=== PATIENT | female | born 1960 | race Caucasian/White ===

== ENCOUNTER 2017-08-19 19:13 | Emergency (ER) | payer OTHER, MEDICAID ==
[2017-08-19 20:54] LABS: ADD MAN DIFF? NO
[2017-08-19 21:01] LABS: BASOPHIL # 0.1 10^3/ul (0.0-0.1); BASOPHILS % 0.8 % (0.0-2.0); EOSINOPHILS # 0.5 10^3/ul (0.0-0.5); EOSINOPHILS % 4.2 % (0.0-7.0); HEMATOCRIT 31.6 % (37.0-47.0); HEMOGLOBIN 10.9 g/dl (12.0-16.0); LYMPHOCYTES # 3.4 10^3/ul (0.8-2.9); LYMPHOCYTES % 31.7 % (15.0-51.0); MEAN CORPUSCULAR HEMOGLOBIN 29.5 pg (29.0-33.0); MEAN CORPUSCULAR HGB CONC 34.5 g/dl (32.0-37.0); MEAN CORPUSCULAR VOLUME 85.4 fl (82.0-101.0); MONOCYTE # 0.7 10^3/ul (0.3-0.9); MONOCYTES % 6.8 % (0.0-11.0); PLATELET COUNT 304 10^3/UL (140-415); RED CELL DISTRIBUTION WIDTH 13.3 % (11.5-14.5)
[2017-08-19 21:01] LABS: WHITE BLOOD COUNT 10.6 10^3/ul (4.8-10.8)
[2017-08-19] MEDS: SOD CHLORIDE 0.9% 1,000 ML IV (21:14)
[2017-08-19 21:24] LABS: ALANINE AMINOTRANSFERASE 22 IU/L (13-69); ALBUMIN 3.4 g/dl (3.3-4.9); ALBUMIN/GLOBULIN RATIO 0.91; ALKALINE PHOSPHATASE 102 IU/L (42-121); ANION GAP 16 (8-16); ASPARTATE AMINO TRANSFERASE 18 IU/L (15-46); BLOOD UREA NITROGEN 27 mg/dl (7-20); CALCIUM 8.5 mg/dl (8.4-10.2); CARBON DIOXIDE 21 mmol/L (21-31); CHLORIDE 108 mmol/L (97-110); CREATININE 1.87 mg/dl (0.44-1.00); GLUCOSE 215 mg/dl (70-220); LIPASE 125 U/L (23-300); POTASSIUM 3.8 mmol/L (3.5-5.1); SODIUM 141 mmol/L (135-144); TOTAL PROTEIN 7.1 g/dl (6.1-8.1)
[2017-08-19 21:39] LABS: ADD UMIC YES; UR ASCORBIC ACID NEGATIVE (NEGATIVE); UR BACTERIA FEW /HPF (NONE SEEN); UR BILIRUBIN (Dip) NEGATIVE (NEGATIVE); UR BLOOD (Dip) NEGATIVE (NEGATIVE); UR CLARITY SLIGHTLY CLOUDY (CLEAR); UR COLOR YELLOW (YELLOW); UR GLUCOSE (Dip) 1+ mg/dL (NEGATIVE); UR KETONES (Dip) NEGATIVE (NEGATIVE); UR LEUKOCYTE ESTERASE (Dip) NEGATIVE Leu/ul (NEGATIVE); UR NITRITE (Dip) NEGATIVE (NEGATIVE); UR NONSQUAMOUS EPITHELIAL CELL 1 /HPF (NONE SEEN); UR RBC 2 /HPF (0-5); UR SPECIFIC GRAVITY (Dip) 1.016 (1.003-1.030); UR SQUAMOUS EPITHELIAL CELL FEW /HPF (FEW); UR TOTAL PROTEIN (Dip) 3+ mg/dl (NEGATIVE); UR UROBILINOGEN (Dip) NEGATIVE (NEGATIVE); UR WBC 4 /HPF (0-5)
== END 2017-08-19 22:31 | disposition home or self-care (01) ==
LOC: E/R 19:13
DX: E11.42 Type 2 diabetes mellitus with diabetic polyneuropathy (principal); R20.2 Paresthesia of skin; E86.0 Dehydration; I10 Essential (primary) hypertension; I25.10 Atherosclerotic heart disease of native coronary artery without angina pectoris; E66.9 Obesity, unspecified; Z87.891 Personal history of nicotine dependence; Z98.61 Coronary angioplasty status; Z79.82 Long term (current) use of aspirin; Z79.84 Long term (current) use of oral hypoglycemic drugs
CPT/HCPCS: 36415; 80053; 81001; 83690; 85025; 99284-25

== ENCOUNTER 2017-08-22 13:49 | Emergency (ER) | payer OTHER, MEDICAID ==
[2017-08-22 14:19] LABS: ADD MAN DIFF? NO
[2017-08-22 14:21] LABS: WHITE BLOOD COUNT 9.5 10^3/ul (4.8-10.8)
[2017-08-22 14:21] LABS: BASOPHIL # 0.1 10^3/ul (0.0-0.1); BASOPHILS % 0.5 % (0.0-2.0); EOSINOPHILS # 0.2 10^3/ul (0.0-0.5); EOSINOPHILS % 2.2 % (0.0-7.0); HEMATOCRIT 30.8 % (37.0-47.0); HEMOGLOBIN 10.4 g/dl (12.0-16.0); LYMPHOCYTES # 2.2 10^3/ul (0.8-2.9); LYMPHOCYTES % 23.3 % (15.0-51.0); MEAN CORPUSCULAR HEMOGLOBIN 28.7 pg (29.0-33.0); MEAN CORPUSCULAR HGB CONC 33.8 g/dl (32.0-37.0); MEAN CORPUSCULAR VOLUME 85.1 fl (82.0-101.0); MEAN PLATELET VOLUME 9.4 fl (7.4-10.4); MONOCYTE # 0.8 10^3/ul (0.3-0.9); NEUTROPHIL # 6.2 10^3/ul (1.6-7.5); NEUTROPHILS % 65.6 % (39.0-77.0); PLATELET COUNT 303 10^3/UL (140-415); RED BLOOD COUNT 3.62 10^6/ul (4.20-5.40); RED CELL DISTRIBUTION WIDTH 13.4 % (11.5-14.5)
[2017-08-22 14:39] LABS: ALANINE AMINOTRANSFERASE 23 IU/L (13-69); ALBUMIN 3.2 g/dl (3.3-4.9); ALBUMIN/GLOBULIN RATIO 0.91; ALKALINE PHOSPHATASE 86 IU/L (42-121); ANION GAP 15 (8-16); ASPARTATE AMINO TRANSFERASE 16 IU/L (15-46); BILIRUBIN,INDIRECT 0.2 mg/dl (0-1.1); BILIRUBIN,TOTAL 0.2 mg/dl (0.2-1.3); BLOOD UREA NITROGEN 16 mg/dl (7-20); CALCIUM 8.7 mg/dl (8.4-10.2); CARBON DIOXIDE 23 mmol/L (21-31); CHLORIDE 110 mmol/L (97-110); CREATININE 1.26 mg/dl (0.44-1.00); GLUCOSE 285 mg/dl (70-220); LIPASE 53 U/L (23-300); POTASSIUM 4.5 mmol/L (3.5-5.1); SODIUM 143 mmol/L (135-144); TOTAL PROTEIN 6.7 g/dl (6.1-8.1)
[2017-08-22 14:40] LABS: INR 0.99; PROTIME 13.2 Sec (11.9-14.9)
[2017-08-22 14:41] LABS: PARTIAL THROMBOPLASTIN TIME 34.3 Sec (25.0-35.0)
[2017-08-22] MEDS: MECLIZINE 12.5 MG TAB PO (15:23)
== END 2017-08-22 15:46 | disposition home or self-care (01) ==
LOC: E/R 15:46
DX: R42 Dizziness and giddiness (principal); D64.9 Anemia, unspecified; I10 Essential (primary) hypertension; E11.9 Type 2 diabetes mellitus without complications; I25.10 Atherosclerotic heart disease of native coronary artery without angina pectoris; Z79.4 Long term (current) use of insulin; Z79.82 Long term (current) use of aspirin; Z98.61 Coronary angioplasty status; Z87.891 Personal history of nicotine dependence
CPT/HCPCS: 36415; 70450; 80053; 83690; 85025; 85610; 85730; 93005; 99284-25

== ENCOUNTER 2017-11-03 21:23 | Inpatient (IN) | payer OTHER, MEDICAID ==
[2017-11-03 22:26] LABS: ADD MAN DIFF? NO
[2017-11-03 22:29] LABS: BASOPHIL # 0.1 10^3/ul (0.0-0.1); BASOPHILS % 0.6 % (0.0-2.0); EOSINOPHILS # 0.1 10^3/ul (0.0-0.5); EOSINOPHILS % 0.6 % (0.0-7.0); HEMATOCRIT 29.9 % (37.0-47.0); HEMOGLOBIN 9.1 g/dl (12.0-16.0); LYMPHOCYTES # 1.4 10^3/ul (0.8-2.9); LYMPHOCYTES % 15.6 % (15.0-51.0); MEAN CORPUSCULAR HGB CONC 30.4 g/dl (32.0-37.0); MEAN CORPUSCULAR VOLUME 88.7 fl (82.0-101.0); MEAN PLATELET VOLUME 9.5 fl (7.4-10.4); MONOCYTE # 0.7 10^3/ul (0.3-0.9); MONOCYTES % 7.6 % (0.0-11.0); NEUTROPHIL # 6.8 10^3/ul (1.6-7.5); NEUTROPHILS % 74.8 % (39.0-77.0); PLATELET COUNT 204 10^3/UL (140-415); RED BLOOD COUNT 3.37 10^6/ul (4.20-5.40); RED CELL DISTRIBUTION WIDTH 19.4 % (11.5-14.5)
[2017-11-03 22:49] LABS: ANION GAP 8 (8-16); BLOOD UREA NITROGEN 48 mg/dl (7-20); CALCIUM 8.2 mg/dl (8.4-10.2); CARBON DIOXIDE 23 mmol/L (21-31); CHLORIDE 114 mmol/L (97-110); CREATININE 2.37 mg/dl (0.44-1.00); GLUCOSE 105 mg/dl (70-220); POTASSIUM 5.2 mmol/L (3.5-5.1); SODIUM 140 mmol/L (135-144)
[2017-11-04] MEDS ORDERED: ONDANSETRON 4 MG INJ IV ×2 (00:30)
[2017-11-04] MEDS ORDERED: ACETAMINOPHEN 325 MG TAB PO (00:30)
[2017-11-04] MEDS: DEXTROSE 5%-0.45% NACL 1,000 ML IV (00:40)
[2017-11-04] MEDS: INSULIN ASPART [NOVOLOG] 3 ML PEN SC ×6 (01:00→21:00)
[2017-11-04] MEDS: ACCU-CHEK XX (02:30)
[2017-11-04] MEDS ORDERED: PENDING SANTYL ORDER FOR WOUND CARE XX (05:00)
[2017-11-04 06:34] LABS: ADD MAN DIFF? NO
[2017-11-04 06:50] LABS: BASOPHILS % 0.3 % (0.0-2.0); EOSINOPHILS % 0.1 % (0.0-7.0); HEMATOCRIT 29.4 % (37.0-47.0); HEMOGLOBIN 8.9 g/dl (12.0-16.0); LYMPHOCYTES # 2.5 10^3/ul (0.8-2.9); LYMPHOCYTES % 26.9 % (15.0-51.0); MEAN CORPUSCULAR HEMOGLOBIN 26.8 pg (29.0-33.0); MEAN CORPUSCULAR HGB CONC 30.3 g/dl (32.0-37.0); MEAN CORPUSCULAR VOLUME 88.6 fl (82.0-101.0); MEAN PLATELET VOLUME 9.5 fl (7.4-10.4); MONOCYTE # 0.9 10^3/ul (0.3-0.9); MONOCYTES % 9.9 % (0.0-11.0); NEUTROPHIL # 5.8 10^3/ul (1.6-7.5); NEUTROPHILS % 62.2 % (39.0-77.0); PLATELET COUNT 216 10^3/UL (140-415); RED BLOOD COUNT 3.32 10^6/ul (4.20-5.40); RED CELL DISTRIBUTION WIDTH 19.2 % (11.5-14.5)
[2017-11-04 06:50] LABS: WHITE BLOOD COUNT 9.3 10^3/ul (4.8-10.8)
[2017-11-04 07:00] LABS: HEMOGLOBIN A1C 5.8 % (0-5.9)
[2017-11-04 07:04] LABS: CHOLESTEROL 91 mg/dl (100-200)
[2017-11-04 07:04] LABS: CHOL/HDL RATIO 2.3 RATIO; HDL CHOLESTEROL 39 mg/dl (37-92); LDL CHOLESTEROL,CALCULATED 39 mg/dl; TRIGLYCERIDES 63 mg/dl (0-149)
[2017-11-04 07:08] LABS: ALANINE AMINOTRANSFERASE 36 IU/L (13-69); ALBUMIN 2.6 g/dl (3.3-4.9); ALBUMIN/GLOBULIN RATIO 0.81; ALKALINE PHOSPHATASE 78 IU/L (42-121); ANION GAP 8 (8-16); ASPARTATE AMINO TRANSFERASE 50 IU/L (15-46); BLOOD UREA NITROGEN 50 mg/dl (7-20); CALCIUM 8.2 mg/dl (8.4-10.2); CARBON DIOXIDE 21 mmol/L (21-31); CHLORIDE 119 mmol/L (97-110); CREATININE 2.16 mg/dl (0.44-1.00); GLUCOSE 111 mg/dl (70-220); POTASSIUM 4.8 mmol/L (3.5-5.1); SODIUM 143 mmol/L (135-144); TOTAL PROTEIN 5.8 g/dl (6.1-8.1)
[2017-11-04] MEDS ORDERED: GLUCOSE GEL 15 GRAM TUBE PO ×2 (07:30)
[2017-11-04] MEDS ORDERED: GLUCOSE GEL 15 GRAM TUBE BUCCAL (07:30)
[2017-11-04] MEDS ORDERED: GLUCAGON 1 MG INJ IM (07:30)
[2017-11-04] MEDS ORDERED: DEXTROSE 50% 50 ML SYRINGE IV (07:30)
[2017-11-04] MEDS: LEVOTHYROXINE 50 MCG TAB PO (07:46)
[2017-11-04] MEDS: GABAPENTIN 300 MG CAP PO (08:05)
[2017-11-04] MEDS: DOCUSATE SODIUM 100 MG CAP PO ×2 (08:05→20:50)
[2017-11-04] MEDS: DIVALPROEX (ER) 500 MG TAB PO (08:05)
[2017-11-04] MEDS: ASPIRIN (EC) 81 MG TAB PO (08:07)
[2017-11-04] MEDS: CLOPIDOGREL 75 MG TAB PO (08:07)
[2017-11-04] MEDS: FERROUS SULFATE (EC) 325 MG TAB PO ×2 (08:07→20:51)
[2017-11-04] MEDS: DIPHENOXYLATE/ATROPINE TAB PO ×3 (10:09→20:58)
[2017-11-04 10:12] LABS: ADD UMIC YES; UR ASCORBIC ACID NEGATIVE (NEGATIVE); UR BILIRUBIN (Dip) NEGATIVE (NEGATIVE); UR BLOOD (Dip) NEGATIVE (NEGATIVE); UR CLARITY CLEAR (CLEAR); UR COLOR YELLOW (YELLOW); UR GLUCOSE (Dip) NEGATIVE (NEGATIVE); UR KETONES (Dip) NEGATIVE (NEGATIVE); UR LEUKOCYTE ESTERASE (Dip) NEGATIVE Leu/ul (NEGATIVE); UR NITRITE (Dip) NEGATIVE (NEGATIVE); UR RBC 0 /HPF (0-5); UR SPECIFIC GRAVITY (Dip) 1.017 (1.003-1.030); UR TOTAL PROTEIN (Dip) 2+ mg/dl (NEGATIVE); UR UROBILINOGEN (Dip) NEGATIVE (NEGATIVE); UR WBC 2 /HPF (0-5)
[2017-11-04] MEDS: SOD CHLORIDE 0.9% 1,000 ML IV ×2 (11:05→20:50)
[2017-11-04] MEDS: HEPARIN 5,000 UNIT/0.5 ML VIAL SC ×2 (14:40→21:21)
[2017-11-04] MEDS: PANTOPRAZOLE (EC) 40 MG TAB PO (20:50)
[2017-11-04] MEDS: ATORVASTATIN 80 MG TAB PO (20:51)
[2017-11-05] MEDS: ACCU-CHEK XX (02:00)
[2017-11-05] MEDS: SOD CHLORIDE 0.9% 1,000 ML IV (05:16)
[2017-11-05] MEDS: HEPARIN 5,000 UNIT/0.5 ML VIAL SC ×3 (05:21→21:20)
[2017-11-05 06:45] LABS: ANION GAP 8 (8-16); BLOOD UREA NITROGEN 49 mg/dl (7-20); CALCIUM 8.3 mg/dl (8.4-10.2); CARBON DIOXIDE 23 mmol/L (21-31); CHLORIDE 118 mmol/L (97-110); CREATININE 1.87 mg/dl (0.44-1.00); GLUCOSE 59 mg/dl (70-220); POTASSIUM 5.1 mmol/L (3.5-5.1); SODIUM 144 mmol/L (135-144)
[2017-11-05] MEDS: ASPIRIN (EC) 81 MG TAB PO (07:58)
[2017-11-05] MEDS: LEVOTHYROXINE 50 MCG TAB PO (07:58)
[2017-11-05] MEDS: CLOPIDOGREL 75 MG TAB PO (07:58)
[2017-11-05] MEDS: GABAPENTIN 300 MG CAP PO (07:58)
[2017-11-05] MEDS: DOCUSATE SODIUM 100 MG CAP PO ×2 (07:58→21:02)
[2017-11-05] MEDS: FERROUS SULFATE (EC) 325 MG TAB PO ×2 (07:58→21:02)
[2017-11-05] MEDS: DIPHENOXYLATE/ATROPINE TAB PO ×3 (07:59→21:02)
[2017-11-05] MEDS: DIVALPROEX (ER) 500 MG TAB PO (07:59)
[2017-11-05] MEDS: INSULIN ASPART [NOVOLOG] 3 ML PEN SC ×4 (08:00→21:00)
[2017-11-05] MEDS: DEXTROSE 50% 50 ML SYRINGE IV (08:15)
[2017-11-05] MEDS: ATORVASTATIN 80 MG TAB PO (21:02)
[2017-11-05] MEDS: PANTOPRAZOLE (EC) 40 MG TAB PO (21:02)
[2017-11-06] MEDS: ACCU-CHEK XX (01:10)
[2017-11-06] MEDS: HEPARIN 5,000 UNIT/0.5 ML VIAL SC ×4 (06:00→22:53)
[2017-11-06] MEDS: LEVOTHYROXINE 50 MCG TAB PO (06:48)
[2017-11-06 07:08] LABS: ADD MAN DIFF? NO
[2017-11-06 07:12] LABS: WHITE BLOOD COUNT 9.1 10^3/ul (4.8-10.8)
[2017-11-06 07:12] LABS: BASOPHIL # 0.1 10^3/ul (0.0-0.1); BASOPHILS % 0.5 % (0.0-2.0); EOSINOPHILS # 0.4 10^3/ul (0.0-0.5); EOSINOPHILS % 4.5 % (0.0-7.0); HEMOGLOBIN 8.9 g/dl (12.0-16.0); LYMPHOCYTES # 3.2 10^3/ul (0.8-2.9); LYMPHOCYTES % 35.2 % (15.0-51.0); MEAN CORPUSCULAR HGB CONC 30.7 g/dl (32.0-37.0); MEAN CORPUSCULAR VOLUME 87.9 fl (82.0-101.0); MEAN PLATELET VOLUME 9.2 fl (7.4-10.4); MONOCYTE # 1.2 10^3/ul (0.3-0.9); MONOCYTES % 13.6 % (0.0-11.0); NEUTROPHIL # 4.2 10^3/ul (1.6-7.5); NEUTROPHILS % 45.8 % (39.0-77.0); PLATELET COUNT 218 10^3/UL (140-415); RED CELL DISTRIBUTION WIDTH 19.1 % (11.5-14.5)
[2017-11-06 07:34] LABS: PHOSPHORUS 3.9 mg/dl (2.5-4.9)
[2017-11-06 07:34] LABS: MAGNESIUM 1.9 mg/dl (1.7-2.5)
[2017-11-06 07:36] LABS: ANION GAP 6 (8-16); BLOOD UREA NITROGEN 38 mg/dl (7-20); CALCIUM 8.4 mg/dl (8.4-10.2); CARBON DIOXIDE 23 mmol/L (21-31); CHLORIDE 117 mmol/L (97-110); CREATININE 1.68 mg/dl (0.44-1.00); GLUCOSE 88 mg/dl (70-220); POTASSIUM 5.3 mmol/L (3.5-5.1); SODIUM 141 mmol/L (135-144)
[2017-11-06 07:44] LABS: CK-MB 0.85 ng/ml (0.0-2.4)
[2017-11-06 07:44] LABS: TROPONIN-I 0.052 ng/ml (0.000-0.120)
[2017-11-06] MEDS: INSULIN ASPART [NOVOLOG] 3 ML PEN SC ×4 (08:00→20:46)
[2017-11-06] MEDS: GABAPENTIN 300 MG CAP PO (08:18)
[2017-11-06] MEDS: DIPHENOXYLATE/ATROPINE TAB PO ×3 (08:18→20:47)
[2017-11-06] MEDS: DIVALPROEX (ER) 500 MG TAB PO (08:18)
[2017-11-06] MEDS: DOCUSATE SODIUM 100 MG CAP PO ×2 (08:18→20:47)
[2017-11-06] MEDS: FERROUS SULFATE (EC) 325 MG TAB PO ×2 (08:19→20:48)
[2017-11-06] MEDS: CLOPIDOGREL 75 MG TAB PO (08:19)
[2017-11-06] MEDS: AMLODIPINE 5 MG TAB PO (08:19)
[2017-11-06] MEDS: ASPIRIN (EC) 81 MG TAB PO (08:19)
[2017-11-06] MEDS: METOPROLOL 25 MG TAB PO ×2 (12:04→20:48)
[2017-11-06] MEDS: PANTOPRAZOLE (EC) 40 MG TAB PO (20:47)
[2017-11-06] MEDS: ATORVASTATIN 80 MG TAB PO (20:47)
[2017-11-06] MEDS: ACETAMINOPHEN 500 MG TAB PO (22:52)
[2017-11-07] MEDS: ACCU-CHEK XX (02:00)
[2017-11-07] MEDS: LEVOTHYROXINE 50 MCG TAB PO (06:15)
[2017-11-07] MEDS: HEPARIN 5,000 UNIT/0.5 ML VIAL SC ×2 (06:20→14:33)
[2017-11-07] MEDS: INSULIN ASPART [NOVOLOG] 3 ML PEN SC ×3 (08:27→17:35)
[2017-11-07] MEDS: DIPHENOXYLATE/ATROPINE TAB PO (09:00)
[2017-11-07] MEDS: DOCUSATE SODIUM 100 MG CAP PO (09:00)
[2017-11-07] MEDS: FERROUS SULFATE (EC) 325 MG TAB PO (09:29)
[2017-11-07] MEDS: CLOPIDOGREL 75 MG TAB PO (09:29)
[2017-11-07] MEDS: AMLODIPINE 5 MG TAB PO (09:32)
[2017-11-07] MEDS: ASPIRIN (EC) 81 MG TAB PO (09:32)
[2017-11-07] MEDS: GABAPENTIN 300 MG CAP PO (09:32)
[2017-11-07] MEDS: DIVALPROEX (ER) 500 MG TAB PO (09:32)
[2017-11-07] MEDS: METOPROLOL 25 MG TAB PO (09:40)
[2017-11-07] MEDS: INSULIN GLARGINE [LANtus] 3 ML PEN SC (09:53)
[2017-11-07 12:46] LABS: ANION GAP 10 (8-16); BLOOD UREA NITROGEN 33 mg/dl (7-20); CALCIUM 8.3 mg/dl (8.4-10.2); CARBON DIOXIDE 24 mmol/L (21-31); CHLORIDE 111 mmol/L (97-110); CREATININE 1.54 mg/dl (0.44-1.00); GLUCOSE 159 mg/dl (70-220); POTASSIUM 5.7 mmol/L (3.5-5.1); SODIUM 139 mmol/L (135-144)
[2017-11-07 14:16] LABS: POTASSIUM 5.3 mmol/L (3.5-5.1)
[2017-11-07] MEDS: NA POLYST SULFON 15 GM/60 ML BTL PO (14:27)
[2017-11-08] MEDS ORDERED: AMLODIPINE 10 MG TAB PO (09:00)
== END 2017-11-07 18:30 | disposition home health service (06) | DRG 637 ==
LOC: E/R 21:23 → MS4 11-04 00:23
PROVIDERS: Internal Medicine
DX: E11.649 Type 2 diabetes mellitus with hypoglycemia without coma (principal); G93.41 Metabolic encephalopathy; I13.0 Hypertensive heart and chronic kidney disease with heart failure and stage 1 through stage 4 chronic kidney disease, or unspecified chronic kidney disease; N17.9 Acute kidney failure, unspecified; I95.9 Hypotension, unspecified; E87.5 Hyperkalemia; I50.9 Heart failure, unspecified; E11.22 Type 2 diabetes mellitus with diabetic chronic kidney disease; E11.40 Type 2 diabetes mellitus with diabetic neuropathy, unspecified; N18.9 Chronic kidney disease, unspecified; E78.5 Hyperlipidemia, unspecified; G40.909 Epilepsy, unspecified, not intractable, without status epilepticus; E03.9 Hypothyroidism, unspecified; I25.10 Atherosclerotic heart disease of native coronary artery without angina pectoris; F31.9 Bipolar disorder, unspecified; F17.210 Nicotine dependence, cigarettes, uncomplicated; Z79.4 Long term (current) use of insulin; Z90.49 Acquired absence of other specified parts of digestive tract; Z86.73 Personal history of transient ischemic attack (TIA), and cerebral infarction without residual deficits; Z79.02 Long term (current) use of antithrombotics/antiplatelets; Z79.82 Long term (current) use of aspirin
CPT/HCPCS: 80048; 80053; 80061; 81001; 82553; 82962; 83036; 83735; 84100; 84132; 84484; 85025; 93005; 99285-25

== ENCOUNTER 2017-11-14 20:42 | Inpatient (IN) | payer OTHER, MEDICAID ==
[2017-11-14] MEDS: SOD CHLORIDE 0.9% 500 ML IV (21:02)
[2017-11-14 21:30] LABS: ADD MAN DIFF? NO
[2017-11-14 21:34] LABS: BASOPHIL # 0.1 10^3/ul (0.0-0.1); BASOPHILS % 0.5 % (0.0-2.0); EOSINOPHILS # 0.1 10^3/ul (0.0-0.5); EOSINOPHILS % 0.4 % (0.0-7.0); HEMATOCRIT 31.9 % (37.0-47.0); HEMOGLOBIN 9.7 g/dl (12.0-16.0); LYMPHOCYTES # 1.9 10^3/ul (0.8-2.9); LYMPHOCYTES % 13.6 % (15.0-51.0); MEAN CORPUSCULAR HEMOGLOBIN 27.4 pg (29.0-33.0); MEAN CORPUSCULAR HGB CONC 30.4 g/dl (32.0-37.0); MEAN CORPUSCULAR VOLUME 90.1 fl (82.0-101.0); MONOCYTE # 0.9 10^3/ul (0.3-0.9); MONOCYTES % 6.3 % (0.0-11.0); NEUTROPHILS % 78.8 % (39.0-77.0); PLATELET COUNT 271 10^3/UL (140-415); RED BLOOD COUNT 3.54 10^6/ul (4.20-5.40); RED CELL DISTRIBUTION WIDTH 20.6 % (11.5-14.5)
[2017-11-14 21:34] LABS: WHITE BLOOD COUNT 13.9 10^3/ul (4.8-10.8)
[2017-11-14] MEDS ORDERED: DEXTROSE 50% 50 ML SYRINGE (21:57)
[2017-11-14 22:01] LABS: ALANINE AMINOTRANSFERASE 22 IU/L (13-69); ALBUMIN 3.4 g/dl (3.3-4.9); ALBUMIN/GLOBULIN RATIO 0.85; ALKALINE PHOSPHATASE 82 IU/L (42-121); ANION GAP 13 (8-16); ASPARTATE AMINO TRANSFERASE 19 IU/L (15-46); BILIRUBIN,INDIRECT 0.2 mg/dl (0-1.1); BILIRUBIN,TOTAL 0.2 mg/dl (0.2-1.3); BLOOD UREA NITROGEN 33 mg/dl (7-20); CARBON DIOXIDE 22 mmol/L (21-31); CHLORIDE 114 mmol/L (97-110); CREATININE 2.01 mg/dl (0.44-1.00); GLUCOSE 62 mg/dl (70-220); LIPASE 34 U/L (23-300); POTASSIUM 4.6 mmol/L (3.5-5.1); SODIUM 144 mmol/L (135-144); TOTAL PROTEIN 7.4 g/dl (6.1-8.1)
[2017-11-14 22:15] LABS: TROPONIN-I < 0.012 ng/ml (0.000-0.120)
[2017-11-14] MEDS: DEXTROSE 50% 50 ML SYRINGE IV (22:28)
[2017-11-14 22:31] LABS: ADD UMIC YES; UR AMORPHOUS CRYSTAL MANY /HPF (NONE SEEN); UR ASCORBIC ACID 40 mg/dL (NEGATIVE); UR BACTERIA FEW /HPF (NONE SEEN); UR BILIRUBIN (Dip) NEGATIVE (NEGATIVE); UR BLOOD (Dip) NEGATIVE (NEGATIVE); UR CLARITY CLOUDY (CLEAR); UR COLOR YELLOW (YELLOW); UR GLUCOSE (Dip) NEGATIVE (NEGATIVE); UR KETONES (Dip) NEGATIVE (NEGATIVE); UR LEUKOCYTE ESTERASE (Dip) NEGATIVE Leu/ul (NEGATIVE); UR NITRITE (Dip) NEGATIVE (NEGATIVE); UR RBC 1 /HPF (0-5); UR SPECIFIC GRAVITY (Dip) 1.022 (1.003-1.030); UR SQUAMOUS EPITHELIAL CELL FEW /HPF (FEW); UR TOTAL PROTEIN (Dip) 3+ mg/dl (NEGATIVE); UR UROBILINOGEN (Dip) NEGATIVE (NEGATIVE); UR WBC 0 /HPF (0-5)
[2017-11-14 22:45] LABS: INR 1.06; PROTIME 13.9 Sec (11.9-14.9); PT RATIO 1.1
[2017-11-14 22:46] LABS: PARTIAL THROMBOPLASTIN TIME 34.9 Sec (25.0-35.0)
[2017-11-15 01:32] LABS: VALPROATE < 10 ug/ml (50-100)
[2017-11-15] MEDS ORDERED: GLUCAGON 1 MG INJ IM (03:00)
[2017-11-15] MEDS ORDERED: GLUCOSE GEL 15 GRAM TUBE BUCCAL (03:00)
[2017-11-15] MEDS ORDERED: ONDANSETRON 4 MG INJ IV (03:00)
[2017-11-15] MEDS ORDERED: DEXTROSE 50% 50 ML SYRINGE IV ×2 (03:00)
[2017-11-15] MEDS ORDERED: GLUCOSE GEL 15 GRAM TUBE PO ×2 (03:00)
[2017-11-15 07:17] LABS: ADD MAN DIFF? NO
[2017-11-15 07:27] LABS: WHITE BLOOD COUNT 13.4 10^3/ul (4.8-10.8)
[2017-11-15 07:27] LABS: BASOPHIL # 0.1 10^3/ul (0.0-0.1); BASOPHILS % 0.4 % (0.0-2.0); EOSINOPHILS # 0.1 10^3/ul (0.0-0.5); EOSINOPHILS % 0.4 % (0.0-7.0); HEMOGLOBIN 8.7 g/dl (12.0-16.0); LYMPHOCYTES # 3.2 10^3/ul (0.8-2.9); LYMPHOCYTES % 23.6 % (15.0-51.0); MEAN CORPUSCULAR HGB CONC 31.1 g/dl (32.0-37.0); MEAN PLATELET VOLUME 9.1 fl (7.4-10.4); MONOCYTE # 1.2 10^3/ul (0.3-0.9); MONOCYTES % 8.7 % (0.0-11.0); NEUTROPHIL # 8.9 10^3/ul (1.6-7.5); NEUTROPHILS % 66.7 % (39.0-77.0); PLATELET COUNT 298 10^3/UL (140-415); RED BLOOD COUNT 3.22 10^6/ul (4.20-5.40); RED CELL DISTRIBUTION WIDTH 20.4 % (11.5-14.5)
[2017-11-15] MEDS: LEVOTHYROXINE 50 MCG TAB PO (07:45)
[2017-11-15] MEDS: INSULIN ASPART [NOVOLOG] 3 ML PEN SC ×4 (08:00→21:00)
[2017-11-15 08:07] LABS: ANION GAP 14 (8-16); BLOOD UREA NITROGEN 32 mg/dl (7-20); CALCIUM 8.5 mg/dl (8.4-10.2); CARBON DIOXIDE 25 mmol/L (21-31); CHLORIDE 113 mmol/L (97-110); CREATININE 1.85 mg/dl (0.44-1.00); GLUCOSE 105 mg/dl (70-220); POTASSIUM 4.7 mmol/L (3.5-5.1); SODIUM 147 mmol/L (135-144)
[2017-11-15] MEDS: ASPIRIN (EC) 81 MG TAB PO (08:53)
[2017-11-15] MEDS: FERROUS SULFATE (EC) 325 MG TAB PO ×2 (08:54→21:46)
[2017-11-15] MEDS: DIVALPROEX (ER) 500 MG TAB PO (08:54)
[2017-11-15] MEDS: DOCUSATE SODIUM 100 MG CAP PO ×2 (08:54→21:46)
[2017-11-15] MEDS: AMLODIPINE 10 MG TAB PO (08:55)
[2017-11-15] MEDS: GABAPENTIN 300 MG CAP PO (08:55)
[2017-11-15] MEDS: CLOPIDOGREL 75 MG TAB PO (09:00)
[2017-11-15] MEDS ORDERED: BENAZEPRIL 40 MG TAB PO (09:00)
[2017-11-15] MEDS: SOD CHLORIDE 0.45% 1,000 ML IV ×2 (10:00→20:00)
[2017-11-15] MEDS: ACETAMINOPHEN 325 MG TAB PO (21:45)
[2017-11-15] MEDS: ATORVASTATIN 80 MG TAB PO (21:46)
[2017-11-15] MEDS: PANTOPRAZOLE (EC) 40 MG TAB PO (21:46)
[2017-11-16] MEDS: SOD CHLORIDE 0.45% 1,000 ML IV ×2 (06:00→16:42)
[2017-11-16] MEDS: LEVOTHYROXINE 50 MCG TAB PO (06:55)
[2017-11-16] MEDS: INSULIN ASPART [NOVOLOG] 3 ML PEN SC ×4 (08:07→21:18)
[2017-11-16] MEDS: ASPIRIN (EC) 81 MG TAB PO (08:26)
[2017-11-16] MEDS: DIVALPROEX (ER) 500 MG TAB PO ×2 (08:26→21:00)
[2017-11-16] MEDS: FERROUS SULFATE (EC) 325 MG TAB PO ×2 (08:26→20:59)
[2017-11-16] MEDS: DOCUSATE SODIUM 100 MG CAP PO ×2 (08:26→20:59)
[2017-11-16] MEDS: GABAPENTIN 300 MG CAP PO (08:27)
[2017-11-16] MEDS: CLOPIDOGREL 75 MG TAB PO (08:27)
[2017-11-16] MEDS: AMLODIPINE 10 MG TAB PO (08:27)
[2017-11-16] MEDS: BENAZEPRIL 40 MG TAB PO (10:52)
[2017-11-16 11:17] LABS: ADD MAN DIFF? NO
[2017-11-16 11:20] LABS: BASOPHIL # 0.1 10^3/ul (0.0-0.1); BASOPHILS % 0.8 % (0.0-2.0); EOSINOPHILS # 0.3 10^3/ul (0.0-0.5); EOSINOPHILS % 2.6 % (0.0-7.0); HEMOGLOBIN 9.1 g/dl (12.0-16.0); LYMPHOCYTES # 2.9 10^3/ul (0.8-2.9); LYMPHOCYTES % 25.7 % (15.0-51.0); MEAN CORPUSCULAR HEMOGLOBIN 26.8 pg (29.0-33.0); MEAN CORPUSCULAR HGB CONC 30.3 g/dl (32.0-37.0); MEAN CORPUSCULAR VOLUME 88.5 fl (82.0-101.0); MEAN PLATELET VOLUME 8.7 fl (7.4-10.4); MONOCYTES % 8.9 % (0.0-11.0); NEUTROPHIL # 6.9 10^3/ul (1.6-7.5); NEUTROPHILS % 61.6 % (39.0-77.0); PLATELET COUNT 335 10^3/UL (140-415); RED BLOOD COUNT 3.39 10^6/ul (4.20-5.40); RED CELL DISTRIBUTION WIDTH 20.5 % (11.5-14.5)
[2017-11-16 11:20] LABS: WHITE BLOOD COUNT 11.2 10^3/ul (4.8-10.8)
[2017-11-16 11:42] LABS: ANION GAP 11 (8-16); BLOOD UREA NITROGEN 28 mg/dl (7-20); CALCIUM 8.5 mg/dl (8.4-10.2); CARBON DIOXIDE 23 mmol/L (21-31); CHLORIDE 113 mmol/L (97-110); CREATININE 1.71 mg/dl (0.44-1.00); GLUCOSE 127 mg/dl (70-220); POTASSIUM 4.7 mmol/L (3.5-5.1); SODIUM 142 mmol/L (135-144)
[2017-11-16] MEDS ORDERED: LORAZEPAM 2 MG INJ (14:36)
[2017-11-16] MEDS: LORAZEPAM 2 MG INJ IV (14:59)
[2017-11-16 15:51] LABS: VALPROATE 12 ug/ml (50-100)
[2017-11-16] MEDS: DIVALPROEX (EC) 500 MG TAB PO (16:41)
[2017-11-16] MEDS: ATORVASTATIN 80 MG TAB PO (20:59)
[2017-11-16] MEDS: PANTOPRAZOLE (EC) 40 MG TAB PO (21:00)
[2017-11-17] MEDS: SOD CHLORIDE 0.45% 1,000 ML IV ×2 (02:00→04:30)
[2017-11-17] MEDS: LEVOTHYROXINE 50 MCG TAB PO (06:58)
[2017-11-17] MEDS: INSULIN ASPART [NOVOLOG] 3 ML PEN SC ×3 (07:52→17:21)
[2017-11-17 08:29] LABS: ANION GAP 13 (8-16); BLOOD UREA NITROGEN 27 mg/dl (7-20); CALCIUM 8.7 mg/dl (8.4-10.2); CARBON DIOXIDE 26 mmol/L (21-31); CHLORIDE 109 mmol/L (97-110); CREATININE 1.68 mg/dl (0.44-1.00); GLUCOSE 110 mg/dl (70-220); POTASSIUM 5.2 mmol/L (3.5-5.1); SODIUM 143 mmol/L (135-144)
[2017-11-17] MEDS: CLOPIDOGREL 75 MG TAB PO (08:57)
[2017-11-17] MEDS: ASPIRIN (EC) 81 MG TAB PO (08:58)
[2017-11-17] MEDS: FERROUS SULFATE (EC) 325 MG TAB PO (08:58)
[2017-11-17] MEDS: AMLODIPINE 10 MG TAB PO (08:58)
[2017-11-17] MEDS: BENAZEPRIL 40 MG TAB PO (08:58)
[2017-11-17] MEDS: DIVALPROEX (ER) 500 MG TAB PO (08:58)
[2017-11-17] MEDS: GABAPENTIN 300 MG CAP PO (08:58)
[2017-11-17] MEDS: DOCUSATE SODIUM 100 MG CAP PO (08:58)
[2017-11-17] MEDS: DIVALPROEX (EC) 250 MG TAB PO (16:00)
[2017-11-17] MEDS: DIVALPROEX (ER) 250 MG TAB PO (17:22)
== END 2017-11-17 18:58 | disposition home health service (06) | DRG 639 ==
LOC: E/R 20:42 → MS4 22:18
PROVIDERS: Legal Medicine
DX: E11.649 Type 2 diabetes mellitus with hypoglycemia without coma (principal); G92 Toxic encephalopathy; N17.9 Acute kidney failure, unspecified; E11.22 Type 2 diabetes mellitus with diabetic chronic kidney disease; E87.5 Hyperkalemia; E86.0 Dehydration; E03.9 Hypothyroidism, unspecified; E78.5 Hyperlipidemia, unspecified; I25.10 Atherosclerotic heart disease of native coronary artery without angina pectoris; G40.909 Epilepsy, unspecified, not intractable, without status epilepticus; I12.9 Hypertensive chronic kidney disease with stage 1 through stage 4 chronic kidney disease, or unspecified chronic kidney disease; N18.9 Chronic kidney disease, unspecified; F17.210 Nicotine dependence, cigarettes, uncomplicated; E11.42 Type 2 diabetes mellitus with diabetic polyneuropathy; Z79.4 Long term (current) use of insulin; Z79.82 Long term (current) use of aspirin; Z86.73 Personal history of transient ischemic attack (TIA), and cerebral infarction without residual deficits; Z91.14 Patient's other noncompliance with medication regimen; Z79.02 Long term (current) use of antithrombotics/antiplatelets; Z95.5 Presence of coronary angioplasty implant and graft
CPT/HCPCS: 70450; 71045; 80048; 80053; 80164; 81001; 82962; 83690; 84484; 85025; 85610; 85730; 87086; 93005; 95819; 97162; 99291-25